=== PATIENT | female | born 1990 | race African-American/Black ===

== ENCOUNTER 2023-01-15 06:46 | Inpatient (IN) | payer OTHER ==
[2023-01-15 08:33] VITALS: BMI 29.7
[2023-01-15] MEDS ORDERED: CLINDAMYCIN 900 MG PREMIX IVPB 900 MG/50 ML BAG IVPB SCH (09:00)
[2023-01-15] MEDS: ELECTROLYTE-148 SOLN 1,000 ML IV SCH ×2 (09:20→21:46)
[2023-01-15 09:50] LABS: BASO % 0.8 % (0-2.0); EOS % 0.4 % (0-4.5); HEMATOCRIT 38.6 % (32.4-45.2); HEMOGLOBIN 13.3 GM/dL (10.7-15.3); LYMPH % 30.8 % (8-40); MCH 29.6 pg (25.7-33.7); MCHC 34.4 g/dl (32.0-36.0); MEAN CELL VOLUME 86.1 fl (80-96); MEAN PLT VOLUME 7.5 fl (7.5-11.1); MONO % 9.1 % (3.8-10.2); NEUT % 58.9 % (42.8-82.8); PLATELET COUNT 239 10^3/uL (134-434); RBC 4.48 M/mm3 (3.60-5.2); RDW 13.4 % (11.6-15.6); WHITE BLOOD COUNT 5.9 K/mm3 (4.0-10.0)
[2023-01-15] MEDS: CLINDAMYCIN IVPB 900 MG in DEXTROSE 5%-WATER - 50 ML IVPB SCH ×2 (09:50→18:12)
[2023-01-15 09:57] LABS: INR 0.93 (0.83-1.09); PROTHROMBIN TIME (PATIENT) 10.8 SEC (9.7-13.0)
[2023-01-15 09:59] LABS: ACTIVATED PTT 22.9 SECONDS (25.2-36.5)
[2023-01-15 10:01] LABS: POTASSIUM 4.5 mmol/L (3.5-5.1)
[2023-01-15 10:03] LABS: BLOOD UREA NITROGEN 7.5 mg/dL (7-18); CALCIUM 8.7 mg/dL (8.5-10.1)
[2023-01-15 10:06] LABS: CREATININE 0.6 mg/dL (0.55-1.3)
[2023-01-15 11:10] LABS: HIV INTERPRETATION NEGATIVE (NEGATIVE)
[2023-01-15] MEDS ORDERED: OXYTOCIN 30 UNITS in 0.9% NS 30 UNIT/500 ML INFUS.BAG IVPB SCH (12:10)
[2023-01-15] MEDS ORDERED: OXYTOCIN 30 UNITS in 0.9% NS 30 UNIT/500 ML INFUS.BAG IVPB ONE (12:26)
[2023-01-15] MEDS ORDERED: FENTANYL/BUPIVACAINE/NS/PF - PCEA - 50 ML DISP.SYRIN EP ONE (20:55)
[2023-01-15] MEDS ORDERED: LIDOCAINE HCL 1% PRESERVATIVE FREE - 30ML VIAL ONE (21:25)
[2023-01-15] MEDS ORDERED: OXYTOCIN 20 UNITS in 0.9% NS 20 UNIT/1,000 ML INFUS.BAG IV ONE (21:25)
[2023-01-15] MEDS: FENTANYL/BUPIVACAINE/NS/PF - PCEA - 50 ML DISP.SYRIN EP SCH (21:39)
[2023-01-15] MEDS ORDERED: NALOXONE HCL 0.4 MG/ML VIAL IVPUSH PRN (22:29)
[2023-01-15] MEDS ORDERED: IBUPROFEN 600 MG TABLET (FP) PO PRN (23:12)
[2023-01-15] MEDS ORDERED: oxyCODONE HCL 5 MG TABLET PO PRN (23:12)
[2023-01-15] MEDS ORDERED: BENZOCAINE 20% 57 GM BOTTLE TP PRN (23:12)
[2023-01-15] MEDS ORDERED: BISACODYL 10 MG SUPP.RECT RC PRN (23:12)
[2023-01-15] MEDS ORDERED: METHYLERGONOVINE MALEATE 0.2 MG/1 ML AMP IM PRN (23:12)
[2023-01-15] MEDS ORDERED: ACETAMINOPHEN 325 MG TABLET (FP) PO PRN (23:12)
[2023-01-15] MEDS ORDERED: WITCH HAZEL 50% (TUCKS) 40 PAD/JAR PAD TP PRN (23:12)
[2023-01-15] MEDS ORDERED: BENZOCAINE 28 GM HEMORRHOIDAL OINTMENT TP PRN (23:12)
[2023-01-15] MEDS ORDERED: OXYTOCIN 20 UNITS in 0.9% NS 20 UNIT/1,000 ML INFUS.BAG IV SCH (23:15)
[2023-01-16 08:57] LABS: BASO % 0.2 % (0-2.0); EOS % 0.1 % (0-4.5); HEMATOCRIT 38.1 % (32.4-45.2); HEMOGLOBIN 12.5 GM/dL (10.7-15.3); LYMPH % 11.2 % (8-40); MEAN CELL VOLUME 88.1 fl (80-96); MEAN PLT VOLUME 8.1 fl (7.5-11.1); MONO % 7.8 % (3.8-10.2); NEUT % 80.7 % (42.8-82.8); PLATELET COUNT 227 10^3/uL (134-434); RBC 4.32 M/mm3 (3.60-5.2); RDW 13.2 % (11.6-15.6); WHITE BLOOD COUNT 15.8 K/mm3 (4.0-10.0)
[2023-01-16] MEDS: PRENATAL VITAMINS W/ FOLIC ACID TABLET (FP) PO SCH (10:23)
[2023-01-16] MEDS: FERROUS SO4 325 MG TABLET (FP) PO SCH ×2 (10:23→21:04)
[2023-01-16] MEDS ORDERED: SENNOSIDES/DOCUSATE COMBO (SENNA PLUS) TABLET (UD) PO PRN (22:00)
[2023-01-16] MEDS: FENTANYL/BUPIVACAINE/NS/PF - PCEA - 50 ML DISP.SYRIN EP SCH (23:52)
[2023-01-17] MEDS: FERROUS SO4 325 MG TABLET (FP) PO SCH (10:03)
[2023-01-17] MEDS: PRENATAL VITAMINS W/ FOLIC ACID TABLET (FP) PO SCH (10:03)
[2023-01-17 10:46] VITALS: BP 118/71; PULSE 61; RESP 16; TEMP 98.4
== END 2023-01-17 13:30 | disposition home or self-care (01) | DRG 560 ==
LOC: JLDR 06:46 → J3W 01-16 00:37
PROVIDERS: ADMIT Obstetrics & Gynecology; ATTEND Obstetrics & Gynecology
PROC: 10E0XZZ Delivery of Products of Conception, External Approach (ICD-10-PCS; principal; 2023-01-15)
PROC: 0HQ9XZZ Repair Perineum Skin, External Approach (ICD-10-PCS; 2023-01-15)
DX: O48.0 Post-term pregnancy (principal); O70.0 First degree perineal laceration during delivery; Z37.0 Single live birth; Z3A.40 40 weeks gestation of pregnancy
CPT/HCPCS: 36415; 80048; 85025; 85610; 85730; 86780; 86850; 86900; 86901; 87389